=== PATIENT | male | born 1980 | race Caucasian/White ===

== ENCOUNTER 2025-01-22 15:38 | Emergency (ER) | payer OTHER, SELFPAY ==
[2025-01-22] VITALS (7 sets, daily range): BP systolic 129–144; BP diastolic 74–98; PULSE 81–101; RESP 12–25; TEMP 36.7; O2SAT 95–98; BMI 33.7
--- NOTE | 2025-01-22 15:46 | DI.RAD.S_ITS ---
PROCEDURE: XR CHEST 1V INDICATIONS: Chest Pain TECHNIQUE: One view of the chest was acquired. COMPARISON: None. FINDINGS: Surgical changes and devices: None. Lungs and pleura: Lungs are clear. No pleural effusions or pneumothorax. Mediastinum: Mediastinal contours appear normal. Heart size is normal. Bones and chest wall: No suspicious bony lesions. Overlying soft tissues appear unremarkable. IMPRESSION: No acute cardiopulmonary abnormality is seen. Dictated by: Juan Zarate M.D. on 01/22/2025 at 15:21 Approved by: Juan Zarate M.D. on 01/22/2025 at 15:21
--- NOTE | 2025-01-22 15:51 | EKG_ITS ---
[address] [address] Test Date: 2025-01-22 Pat Name: Bakari Elise Department: [facility] Room: Gender: Male Logistics And Planning Manager: KAROL STANTON : 1980 Requested By: Order Number: [id number] Reading MD: Hemant Doran MD Measurements Intervals [place] Rate: 101 P: 50 NJ: 150 QRS: -36 QRSD: 96 T: 33 QT: 332 QTc: 430 Interpretive Statements Sinus tachycardia Left axis deviation Septal infarct , age undetermined Electronically Signed On 01-22-2025 21:38:42 PST by Hemant Doran MD
[2025-01-22 16:21] LABS: INR 1.0 (0.9-1.3); Prothrombin Time 11.5 SECONDS (9.4-12.5)
[2025-01-22 16:24] LABS: PTT Partial Thromboplastin Tim 32 SECONDS (25.1-36.5)
[2025-01-22 16:25] LABS: Add Manual Diff / Slide Review NO; Hematocrit 46.7 % (41-53); Hemoglobin 16.3 g/dL (13.5-17.5); Lymphocytes Absolute Auto 4700 /uL (1100-4500); Mean Corpuscular HGB Conc 35.0 % (30-36); Mean Corpuscular Hemoglobin 31.1 PG (26-34); Mean Corpuscular Volume 88.7 fL (80-100); Platelet Count 311 X10^3/uL (150-400)
[2025-01-22 16:26] LABS: Alanine Aminotransferase 32 IU/L (<50); Albumin 4.6 g/dL (3.5-5.0); Albumin Globulin Ratio 1.3 (1.0-2.8); Alkaline Phosphatase 86 U/L (38-126); Blood Urea Nitrogen 14 mg/dL (9-20); Calcium 10.1 mg/dL (8.4-10.2); Carbon Dioxide 26 mmol/L (22-32); Chloride 106 mmol/L (98-107); Creatine Kinase 57 U/L (55-170); Estimated Glomerular Filt Rate > 60 mL/min (>60); Globulin 3.5 g/dL (1.7-4.1); Glucose 100 mg/dL (70-99); HEMOLYSIS < 15 (0-50); Lipase 86 U/L (23-300); Magnesium 1.8 mg/dL (1.6-2.3); Potassium 3.7 mmol/L (3.4-5.1); Sodium 142 mmol/L (137-145); Total Protein 8.1 g/dL (6.3-8.2)
[2025-01-22 16:37] LABS: NT-proBNP (BNP-Adult 18+) < 20 pg/mL (<125); Troponin I < 0.012 ng/mL (0.01-0.034)
--- NOTE | 2025-01-22 20:20 | PC.NURSE ---
Pt sitting in ED stretcher speaking with girlfriend at this time. Pt engages appropriately with RN upon entering exam room. Pt states intermittent chest pain with left arm tingling with todays episode lasting the longest. States some SOB during episodes, denies n/v. States no symptoms at this time, but feeling of some muscle tightness at the site of chest pain. Continued plan of care discussed. No further requests or concerns at this time. Pt connected to cardiac, resp, blood pressure, and pulse ox monitors with alarms on and audible. VS stable at this time. Call light within reach. Girlfriend remains at bedside.
[2025-01-22 20:41] LABS: Troponin I < 0.012 ng/mL (0.01-0.034)
--- NOTE | 2025-01-22 21:11 | ED_ITS ---
HPI - Chest Pain General Chief Complaint: Chest Pain Stated Complaint: Chest pain, tense, concerned about heart Time Seen by Provider: 01/22/25 20:16 Source: patient Mode of arrival: Ambulatory History of Present Illness HPI narrative: 44-year-old male with no known history of coronary artery disease, has had intermittent chest discomfort anterior. Brief in duration. Not associated with nausea or vomiting or diaphoresis. Nonradiating. Not particularly worse with breathing in or changes of position. Denies cardiac risk factors of diabetes, hypertension, hyperlipidemia, family history of persons having MO at similar/younger age, any smoking prior. No previous coronary cardiac stress testing recalled. No injury trauma new activities. No recent cough fevers chills. Related Data Allergies Allergy/AdvReac Type Severity Reaction Status Date / Time codeine AdvReac Vomiting Verified 01/22/25 15:47 Patient History Social History Smoking Status: Never smoker Smoking Status: Never smoker Exam Narrative Exam Narrative: GENERAL: Well-developed patient, in mild distress. HEAD: Atraumatic. Normocephalic. EYES: Pupils equal round and reactive. Extraocular motions intact. No scleral icterus. No injection or drainage. ENT: Nose without bleeding, purulent drainage. Throat without erythema, tonsillar hypertrophy or exudate. Airway patent. NECK: Trachea midline. Non tender CARDIOVASCULAR: Regular rate and rhythm without murmurs, gallops, or rubs. RESPIRATORY: Clear to auscultation. Breath sounds equal bilaterally. No wheezes, rales, or rhonchi. GASTROINTESTINAL: Abdomen soft, non-tender, nondistended. EXTREMITIES: No edema or joint tenderness. BACK: Nontender without deformity or crepitance. No flank tenderness. NEURO: AOx3. Motor functions grossly nonfocal. SKIN: No rash or erythema of visible areas Initial Vital Signs Initial Vital Signs: Vital Signs Temperature 98.1 F 01/22/25 15:48 Pulse Rate 101 H 01/22/25 15:48 Respiratory Rate 18 01/22/25 15:48 Blood Pressure 144/96 H 01/22/25 15:48 Pulse Oximetry 98 01/22/25 15:48 Oxygen Delivery Method Room Air 01/22/25 15:48 Scores HEART Score Heart Score history: Slightly Suspicious Heart Score EKG: Normal Heart Score Age: 45-64 years old Heart Score risk factors: No known risk factors Heart Score troponin: < or = to normal limit Heart Score Total: 1 Course Orders Ordered: ED Orders 01/22/25 16:02 Complete Blood Count AUTO DIFF Stat Comprehensive Metabolic Panel Stat Lipase Stat Magnesium Stat NT-proBNP (BNP-Adult 18+) Stat PTT Partial Thromboplastin Justin Stat Prothrombin Time INR Stat Troponin & CK Cardiac Panel Stat 01/22/25 20:12 Trop I [Troponin I] Stat Discontinued Medications Aspirin (Aspirin 81 Mg Chew Tab) 324 mg PO NOW ONE Stop: 01/22/25 15:47 Aspirin (Aspirin 81 Mg Chew Tab) 324 mg PO NOW ONE Stop: 01/22/25 21:26 Last Admin: 01/22/25 21:34 Dose: 324 mg Documented By: AMILCAR Vital Signs Vital signs: Vital Signs - 8 hr 01/22/25 19:50 01/22/25 19:51 01/22/25 19:51 Pulse Rate 92 H 85 Respiratory Rate 12 15 Blood Pressure 134/98 H Pulse Oximetry 97 98 Oxygen Delivery Method Room Air Room Air 01/22/25 20:00 01/22/25 20:00 01/22/25 20:30 Pulse Rate 81 87 Respiratory Rate 16 18 Blood Pressure 134/87 Pulse Oximetry 98 96 Oxygen Delivery Method Room Air Room Air 01/22/25 20:30 01/22/25 21:00 01/22/25 21:00 Pulse Rate 82 Respiratory Rate 25 H Blood Pressure 141/80 H 134/80 Pulse Oximetry 95 Oxygen Delivery Method Room Air 01/22/25 21:30 01/22/25 21:30 Pulse Rate 81 Respiratory Rate 21 Blood Pressure 129/74 Pulse Oximetry 96 Oxygen Delivery Method Room Air MDM - Chest Pain Lab Data Attestation: I reviewed the patient's lab results. Lab results narrative: White blood cell count 9900, hemoglobin 16.3, platelets adequate. Glucose 100. Renal function, serum CO2, electrolytes normal. Liver functions and lipase normal. Troponin negative/unmeasurable x2 interval sets. 01/22/25 16:02 01/22/25 16:02 Labs: Lab Results 01/22/25 01/22/25 Range/Units 16:02 20:12 WBC 9.9 (4.5-11.0) X10^3/uL RBC 5.26 (4.5-5.9) X10^6/uL Hgb 16.3 (13.5-17.5) g/dL Hct 46.7 (41-53) % MCV 88.7 (80-100) fL MCH 31.1 (26-34) PG MCHC 35.0 (30-36) % RDW 14.0 (11.6-14.8) % Plt Count 311 (150-400) X10^3/uL Neut % (Auto) 40.6 L (50-75) % Lymph % (Auto) 47.5 H (25-40) % Treasure % (Auto) 8.8 (3-14) % Eos % (Auto) 2.0 (2-4) % Baso % (Auto) 1.1 (0-2) % Neut # (Auto) 4000 (6844-7775) /uL Lymph # (Auto) 4700 H (4256-9026) /uL Treasure # (Auto) 900 (0-900) /uL Eos # (Auto) 200 (0-450) /uL Baso # (Auto) 100 (0-100) /uL PT 11.5 (9.4-12.5) SECONDS INR 1.0 (0.9-1.3) APTT 32 (25.1-36.5) SECONDS Sodium 142 (137-145) mmol/L Potassium 3.7 (3.4-5.1) mmol/L Chloride 106 (98-107) mmol/L Carbon Dioxide 26 (22-32) mmol/L BUN 14 (9-20) mg/dL Creatinine 0.84 (0.66-1.25) mg/dL Estimated GFR > 60 (>60) mL/min BUN/Creatinine Ratio 16.7 (6-22) Glucose 100 H (70-99) mg/dL Calcium 10.1 (8.4-10.2) mg/dL Magnesium 1.8 (1.6-2.3) mg/dL Total Bilirubin 0.6 (0.2-1.3) mg/dL AST 28 (17-59) IU/L ALT 32 (<50) IU/L Alkaline Phosphatase 86 (38-126) U/L Total Creatine Kinase 57 (55-170) U/L Troponin I < 0.012 < 0.012 (0.01-0.034) ng/mL NT-Pro-B Natriuret Pep < 20 (<125) pg/mL Total Protein 8.1 (6.3-8.2) g/dL Albumin 4.6 (3.5-5.0) g/dL Globulin 3.5 (1.7-4.1) g/dL Albumin/Globulin Ratio 1.3 (1.0-2.8) Lipase 86 (23-300) U/L ECG Data Attestation: I personally reviewed and interpreted this ECG as follows: Interpretation: 1551, sinus tachycardia with rate of 101, no obvious ST segment elevation or depression changes. OK 150, QRS 96, QTC 430. MDM Narrative Medical decision making narrative: 44-year-old male has had intermittent chest discomfort over the last few days, no identified cardiac risk factors, no history of known CAD, screening EKG unremarkable, labs pending. No current chest pain. Heart score 1. EKG shows slight sinus tachycardia with rate 101, no obvious ischemic changes. CXR showed no acute changes, see radiology report. Lab data: White blood cell count 9900, hemoglobin 16.3, platelets adequate. Glucose 100. Renal function, serum CO2, electrolytes normal. Liver functions and lipase normal. Troponin negative/unmeasurable x2 interval sets. 1999, recent vitals at that time shows normal blood pressure systolic 134, heart rate 81 had normalized without specific treatment. 98% room air saturation. Oral aspirin given, consider baby aspirin daily. Low risk by risk factors, very low heart score, atypical chest discomfort symptoms, further workup as needed as an outpatient for now. Given contact information for local african history professor Dr. Lai, might need referral from PCP/[place] system. Further workup as an outpatient for now. Consider baby aspirin daily until further workup pursued. Discharged home with family. Return precautions. Discharge Plan Departure Patient Disposition: Home Clinical Impression: Atypical chest pain Activity Restrictions/Additional Instructions: Intermittent chest discomfort of unclear cause. No cardiac risk factors identified when asked about diabetes, hypertension, hyperlipidemia, smoking, family history of coronary artery disease at similar/younger ages. No previous cardiac testing. Low risk by lack of cardiac identifiers above. EKG and lab testing reassuring tonight. Aspirin given by mouth. Consider baby aspirin daily until further workup as an outpatient. Consider local cardiology follow up, contact information given for local african history professor Dr. Lai, you might need referral from your [place]/PCP system, or they might recommend some other african history professor in the area. Follow up as above further workup as an outpatient as needed. Return to this/nearest emergency department for any change worsening symptoms or any concerns prior. Referrals: Dony Lai MD [Physician, Cardiology] Stand Alone Forms: Patient Portal/API
--- NOTE | 2025-01-22 21:16 | PC.NURSE ---
Dr. James in to speak with patient at this time.
[2025-01-22] MEDS: ASPIRIN 81 MG CHEW TAB 324 MG PO (21:34)
== END 2025-01-22 21:45 | disposition home or self-care (01) ==
PROVIDERS: Emergency Medicine; Emergency Provider Emergency Medicine
DX: R07.89 Other chest pain (principal); R00.0 Tachycardia, unspecified
CPT/HCPCS: 71045; 80053; 82550; 83690; 83735; 83880; 84484; 85025; 85610; 85730; 93005; 99283; 99284